=== PATIENT | female | born 1985 | race Caucasian/White ===

== ENCOUNTER 2018-01-11 18:12 | Emergency (ER) | payer MEDICAID ==
[2018-01-11] MEDS ORDERED: NS 1,000 ML IV ONE (18:14)
[2018-01-11 18:23] LABS: PLATELET COUNT 214 10^3/uL (150-400)
[2018-01-11] MEDS ORDERED: FAMOTIDINE 20 MG/2 ML SDV IVP ONE (18:23)
[2018-01-11] MEDS ORDERED: ONDANSETRON 4 MG/2 ML VIAL IVP ONE (18:23)
--- NOTE | 2018-01-11 18:23 | EDPHY ---
H & P Time Seen by Provider: 01/11/18 18:14 HPI/ROS: CHIEF COMPLAINT: Nausea, vomiting, intolerance of food HISTORY OF PRESENT ILLNESS: Patient arrives by EMS and is seen at time of arrival. She complains of nausea , vomiting, epigastric pain. Symptoms started 1 week ago. They have been constant duration. She attempted to increase her normal daily alcohol intake to help this. She is not drinking 12 shots of vodka per day. She had 1 day of lower abdominal pelvic pain 6 days ago that resolved spontaneously. She has no pain in the pelvis at all at this time. No vaginal bleeding or discharge. No urinary complaints. No back pain. No trauma or injury. The alcohol has not helped her symptoms. She has had minimal intake of solids by mouth. She did have [employer] Rodrigues today. No previous diagnosis of cholecystitis cholelithiasis. No abdominal surgeries. No other associated complaints or modifying factors. REVIEW OF SYSTEMS: Ten systems reviewed and are negative unless otherwise noted in the HPI PCP: None SPECIALISTS: [facility] PAST MEDICAL HISTORY: HPV status post LEEP PAST SURGICAL HISTORY: Leep SOCIAL HISTORY: Daily smoker. Daily heavy alcohol use. Daily marijuana user. Currently unemployed. Lives in [place] FAMILY HISTORY: Noncontributory EXAMINATION General Appearance: Alert, no distress. Strong odor of alcohol about her Head: normocephalic, atraumatic Eyes: Pupils equal and round, no conjunctival pallor or injection ENT, Mouth: Mucous membranes mildly dry. Airway is widely patent. Neck: Normal inspection, supple, non-tender Respiratory: Lungs are clear to auscultation. No wheezing rhonchi or crackles Cardiovascular: Regular rate and rhythm. No murmur Gastrointestinal: Abdomen is soft and nondistended. No tympany. No rigidity. No CVA tenderness. Back: non-tender, no bony abnormalities Neurological: A&O, nonfocal, strength is symmetric in the limbs. No pronator drift or tremor. Skin: Warm and dry, no rash. No petechiae or purpura Extremities: Nontender, no pedal edema Psychiatric: Mood and affect normal DIFFERENTIAL DIAGNOSES: Including but not limited to alcohol gastritis, cyclic vomiting, pancreatitis, cholecystitis, cholelithiasis, colitis MDM: 6:15 p.m. Nausea vomiting with epigastric discomfort over the past week. No urinary complaints. Patient does present with evidence of alcohol gastritis and possibly cyclical vomiting from marijuana use. Her abdominal exam is benign. She has no acute distress and has a very strong odor of alcohol about her. Vital signs are stable with very mild tachycardia. I do not feel she warrants emergent imaging at this time. IV was placed prior to arrival and we will evaluate her laboratory studies. I have ordered further IV fluid, nausea medication and Pepcid IV. 6:50 p.m. Laboratory studies are within normal limits. She is still receiving IV fluid. She is resting comfortably in no acute distress. 7:10 p.m. Patient re-evaluated. She is awake and alert. She is asking to be discharged home. She has not vomited. I discussed her normal findings. I discussed her need for alcohol cessation under the supervision of physician. I discussed follow up with primary care physician or the on-call physician as provided. I discussed ED precautions. I discussed that she is on an arc hold by [facility] [employer] and does not have a way to be driven home to the [facility]. [facility] [employer] [facility] be contacted at this time transport her to the [facility] and she is agreeable with this plan. SUPERVISION: Patient was independently examined, but I discussed the case with my secondary supervising physician Dr. Nolasco Smoking Status: Light smoker Constitutional: Initial Vital Signs Temperature (C) 98.8 F 01/11/18 18:20 Heart Rate 101 H 01/11/18 18:20 Respiratory Rate 18 01/11/18 18:20 Blood Pressure 122/84 H 01/11/18 18:20 O2 Sat (%) 96 01/11/18 18:20 O2 Delivery Mode Room Air Allergies/Adverse Reactions: No Known Allergies Allergy (Verified 01/11/18 18:25) Home Medications: Medication Instructions Recorded Amoxicillin/Clavulanate Pot 875 mg PO BID #13 tab 01/11/18 [Augmentin 875 MG TAB (*)] MDM/Departure - MDM Medications Given: Discontinued Medications Famotidine (Pepcid) 20 mg IVP EDNOW ONE Stop: 01/11/18 18:24 Last Admin: 01/11/18 18:35 Dose: 20 mg Sodium Chloride (Ns) 1,000 mls @ 0 mls/hr IV EDNOW ONE; Wide Open PRN Reason: Protocol Stop: 01/11/18 18:15 Last Admin: 01/11/18 18:35 Dose: 1,000 mls Ondansetron HCl (Zofran) 4 mg IVP EDNOW ONE Stop: 01/11/18 18:24 Last Admin: 01/11/18 18:35 Dose: 4 mg - Depart Disposition: Law Enforcement/Court/Group Home Clinical Impression: Scab of left knee Alcoholic gastritis Qualifiers: Chronicity: acute Gastritis bleeding: without bleeding Qualified Code(s): K29.20 - Alcoholic gastritis without bleeding Nausea & vomiting Qualifiers: Vomiting type: unspecified Vomiting Intractability: non-intractable Qualified Code(s): R11.2 - Nausea with vomiting, unspecified Acute alcohol intoxication Qualifiers: Complication of substance-induced condition: uncomplicated Qualified Code(s): F10.929 - Alcohol use, unspecified with intoxication, unspecified Condition: Fair Instructions: Gastritis (ED), Alcohol Intoxication (ED), Abuse of Alcohol (ED) , Chlordiazepoxide/Clidinium (By mouth) Additional Instructions: 1. Follow up with primary care physician for further care 2. Recommend alcohol cessation under the care by physician 3. Return to ED for worsening symptoms or any abdominal pain Prescriptions: Amoxicillin/Clavulanate Pot [Augmentin 875 MG TAB (*)] 875 mg PO BID #13 tab Referrals: [facility],. [Clinic] - As per Instructions
[2018-01-11 18:25] VITALS: RESP 18
[2018-01-11] MEDS ORDERED: AMOXICILLIN/CLAVULANATE POT 875/125 MG TAB PO ONE (19:17)
[2018-01-11 20:13] VITALS: BP 131/78; PULSE 67; TEMP 98.4; O2SAT 96
== END 2018-01-11 20:16 ==
LOC: EDUNIT#
DX: K29.20 Alcoholic gastritis without bleeding (principal); F10.929 Alcohol use, unspecified with intoxication, unspecified; F17.200 Nicotine dependence, unspecified, uncomplicated; R23.4 Changes in skin texture
CPT/HCPCS: 96374; G0480; J2405